=== PATIENT | female | born 1960 | race Caucasian/White ===

== ENCOUNTER → 2017-11-21 | Outpatient (CLI) | payer OTHER | LOC: ULTRA 08:48 | DX: N85.00 Endometrial hyperplasia, unspecified (principal); N83.202 Unspecified ovarian cyst, left side; N93.8 Other specified abnormal uterine and vaginal bleeding ==

== ENCOUNTER → 2019-07-23 | Outpatient (CLI) | payer OTHER | LOC: RAD 07:56 | DX: Z12.31 Encounter for screening mammogram for malignant neoplasm of breast (principal) ==